=== PATIENT | male | born 1995 | race African-American/Black ===

== ENCOUNTER 2016-03-14 14:36 | Emergency (ER) | payer MEDICAID, OTHER ==
[~2016-03-14] VITALS: Ht 182.9 cm; Wt 99.8 kg
[2016-03-14 19:09] VITALS: BP 141/73
== END 2016-03-14 19:18 | disposition home or self-care (01) ==
LOC: ER 14:40
DX: S63.502A Unspecified sprain of left wrist, initial encounter (principal); X50.1XXA Overexertion from prolonged static or awkward postures, initial encounter; Y93.61 Activity, american tackle football; Y99.8 Other external cause status; Y92.838 Other recreation area as the place of occurrence of the external cause
CPT/HCPCS: 73110

== ENCOUNTER 2016-04-01 12:20 | Emergency (ER) | payer MEDICAID ==
[~2016-04-01] VITALS: Ht 185.4 cm; Wt 97.5 kg
[2016-04-01 12:30] VITALS: BP 126/69
== END 2016-04-01 12:48 | disposition left against medical advice (07) ==
LOC: ER 12:21
DX: M25.532 Pain in left wrist (principal); Z53.21 Procedure and treatment not carried out due to patient leaving prior to being seen by health care provider

== ENCOUNTER 2017-03-18 14:25 | Emergency (ER) | payer MEDICAID ==
[~2017-03-18] VITALS: Ht 182.9 cm; Wt 100.2 kg
[2017-03-18 14:55] VITALS: BP 136/73
[2017-03-18 15:43] LABS: Urine Bacteria NONE SEEN /hpf (None Seen); Urine Blood Negative /uL (Negative); Urine Hyaline Cast FEW /lpf (0 - 2); Urine Mucus FEW (None Seen); Urine Specific Gravity 1.022 (1.001-1.035); Urine Sperm PRESENT /hpf (None Seen); Urine WBC 4 /hpf (0 - 3)
[2017-03-18] MEDS ORDERED: KETOROLAC TROMETH 60MG/2ML VIAL IM ONE (16:00)
== END 2017-03-18 16:26 | disposition home or self-care (01) ==
LOC: ER 14:25
DX: N20.0 Calculus of kidney (principal)
CPT/HCPCS: 74176; 81001; 96372; 99285; J1885

== ENCOUNTER 2017-04-12 11:30 | Emergency (ER) | payer MEDICAID ==
[~2017-04-12] VITALS: Ht 182.9 cm; Wt 96.2 kg
[2017-04-12 12:48] LABS: Basophils # (auto) 0 uL; Basophils % (auto) 0.7 % (0.0-2.0); Eosinophils # (auto) 0.2 uL; Eosinophils % (auto) 5.8 % (0.0-7.0); Hematocrit 48.1 % (41.0-53.0); Hemoglobin 15.9 g/dL (13.5-17.5); Lymphocytes % (auto) 32.8 % (10.0-50.0); Mean Corpuscular Hemoglobin 30.2 pg (28.0-32.0); Mean Corpuscular Hgb Conc. 33.1 g/dL (32.0-36.0); Mean Corpuscular Volume 91.2 fL (80.0-100.0); Monocytes # (auto) 0.3 uL; Monocytes % (auto) 9.5 % (0.0-12.0); Neutrophils # (auto) 1.6 uL; Neutrophils % (auto) 51.2 % (37.0-80.0); Nucleated Red Blood Cells % 0.1 %; Platelet Count (auto) 190 10^3/uL (140-450); Red Blood Cells 5.28 10^6/uL (4.5-5.90); Red Cell Distribution Width 14.7 % (11.8-14.3); White Blood Cell 3.2 10^3/uL (4.4-10.8)
[2017-04-12 12:55] LABS: Urine Bacteria NONE SEEN /hpf (None Seen); Urine Blood Negative /uL (Negative); Urine Specific Gravity 1.018 (1.001-1.035); Urine WBC 1 /hpf (0 - 3)
[2017-04-12 13:12] LABS: Albumin 4.2 g/dL (3.4-5.0); BUN/Creatinine Ratio 9.8; Calcium 8.5 mg/dL (8.5-10.1); Potassium 4.3 mmol/L (3.5-5.1)
[2017-04-12 13:15] LABS: Bilirubin, Total 1.9 mg/dL (0.2-1.0); Total Protein 7.6 g/dL (6.4-8.2)
[2017-04-12 14:50] VITALS: BP 124/82
== END 2017-04-12 15:41 | disposition home or self-care (01) ==
LOC: ER 11:30
DX: R10.9 Unspecified abdominal pain (principal); J45.909 Unspecified asthma, uncomplicated
CPT/HCPCS: 36415; 80053; 81001; 85025

== ENCOUNTER 2017-04-30 09:38 | Emergency (ER) | payer MEDICAID ==
[~2017-04-30] VITALS: Ht 182.9 cm; Wt 95.3 kg
[2017-04-30 10:13] VITALS: BP 123/55
== END 2017-04-30 11:21 | disposition home or self-care (01) ==
LOC: ER 09:38
DX: G44.009 Cluster headache syndrome, unspecified, not intractable (principal); R42 Dizziness and giddiness; J45.909 Unspecified asthma, uncomplicated
CPT/HCPCS: 70450

== ENCOUNTER 2017-07-07 11:05 | Emergency (ER) | payer MEDICAID ==
[~2017-07-07] VITALS: Ht 182.9 cm; Wt 95.3 kg
[2017-07-07 11:12] VITALS: BP 121/59
[2017-07-07] MEDS ORDERED: FLUORESCEIN SOD 1 MG TEST STRIP LEFTEYE ONE (14:15)
[2017-07-07] MEDS ORDERED: IBUPROFEN 800 MG TAB PO ONE ×2 (14:15)
== END 2017-07-07 16:04 | disposition home or self-care (01) ==
LOC: ER 11:07
DX: N44.2 Benign cyst of testis (principal); J45.909 Unspecified asthma, uncomplicated; E66.9 Obesity, unspecified
CPT/HCPCS: 76870